=== PATIENT | female | born 2000 | race Caucasian/White ===

== ENCOUNTER 2020-03-17 07:25 | Inpatient (IN) | payer MEDICAID ==
[~2020-03-17] VITALS: Ht 165.1 cm; Wt 61.2 kg
[2020-03-17] MEDS ORDERED: CHOL40002 PO (08:30)
[2020-03-17] MEDS ORDERED: PNV1TABL76 PO (08:30)
[2020-03-17] MEDS ORDERED: LACTATED RINGERS 1,000 ML IV SCH ×2 (09:00→10:30)
[2020-03-17 09:24] LABS: CLARITY URINE TURBID (CLEAR); COLOR URINE DARK YELLOW (YELLOW); KETONES URINE 2+ (NEGATIVE); LEUKOCYTE ESTERASE URINE 2+ (NEGATIVE); NITRITE URINE NEGATIVE (NEGATIVE); OCCULT BLOOD URINE 3+ (NEGATIVE); PH URINE 5.5 (4.5-8.0); PROTEIN URINE 1+ (NEGATIVE)
[2020-03-17] MEDS ORDERED: TERBUTALINE SULFATE 1MG/ML VIAL SUBCUT SCH (10:00)
[2020-03-17] MEDS ORDERED: BETAMETHASONE ACET/BETAMET 30 MG/5 ML VIAL IM SCH (10:00)
[2020-03-17] MEDS ORDERED: DEXT 5%/LR + PITOCIN 20UNITS/L 1,000 ML IV SCH ×2 (10:02→11:36)
[2020-03-17] MEDS ORDERED: CARBOPROST TROMETHAMINE 250 MCG/ML AMPUL IM PRN (10:15)
[2020-03-17] MEDS ORDERED: MISOPROSTOL 200MCG TABLET VG SCH (10:15)
[2020-03-17] MEDS ORDERED: LIDOCAINE HCL 1% 20ML VIAL (Pyxis) INJ INFIL SCH (10:15)
[2020-03-17] MEDS ORDERED: NALOXONE HCL 0.4 MG/ML 1ML VIAL IM PRN (10:15)
[2020-03-17] MEDS ORDERED: METHYLERGONOVINE MALEATE 0.2 MG/ML IM PRN (10:15)
[2020-03-17] MEDS ORDERED: BUTORPHANOL TARTRATE 2 MG/ML VIAL IV PRN (10:15)
[2020-03-17 10:32] LABS: BASOPHILS % 0.4 % (0.0-2.0); HEMATOCRIT. 35.7 % (36.0-48.0); HEMOGLOBIN. 12.2 g/dL (12.0-16.0); LYMPHOCYTES % 10.9 % (20.0-50.0); MEAN CORPUSCULAR HEMOGLOBIN 27.6 pg (28.0-32.0); MEAN CORPUSCULAR VOLUME 80.5 fL (81.0-99.0); MEAN PLATELET VOLUME 10.2 fl (7.4-10.4); MONOCYTES % 4.7 % (2.0-8.0); PLATELET 272 x1000/uL (130-400); RED BLOOD CELL COUNT 4.43 mill/uL (4.2-5.4); RED CELL DISTRIBUTION WIDTH 14.6 % (11.6-14.6)
[2020-03-17 10:40] LABS: INR 0.9; PARTIAL THROMBOPLASTIN TIME 29.3 sec (23.4-31.0); PROTHROMBIN TIME 10.3 sec (9.6-11.0)
[2020-03-17 10:43] LABS: *AMPHETAMINES SCREEN URINE NEGATIVE (NEGATIVE); *BARBITURATES SCREEN URINE NEGATIVE (NEGATIVE); *COCAINE SCREEN URINE NEGATIVE (NEGATIVE)
[2020-03-17 10:44] LABS: *BENZODIAZEPINES SCREEN URINE NEGATIVE (NEGATIVE); METHADONE URINE SCREEN NEGATIVE (NEGATIVE); OPIATES URINE SCREEN NEGATIVE (NEGATIVE); PHENCYCLIDINE URINE SCREEN NEGATIVE (NEGATIVE)
[2020-03-17] MEDS ORDERED: ROPIVACAINE HCL/PF EPIDURAL 200 ML EPI NR (11:00)
[2020-03-17] MEDS ORDERED: AZITHROMYCIN 500 MG in DEXT 5% WATER 250 ML IV SCH (11:00)
[2020-03-17] MEDS ORDERED: ROPIVACAINE HCL/PF EPIDURAL 200 ML EPI ONE (11:10)
[2020-03-17 11:22] LABS: HEPATITIS B SURFACE ANTIGEN NEGATIVE
[2020-03-17 11:26] LABS: CANNABINOID URINE SCREEN PRESUMTIVE POSITIVE (NEGATIVE)
[2020-03-17] MEDS ORDERED: IBUPROFEN 400MG TABLET PO PRN (11:45)
[2020-03-17] MEDS ORDERED: RHO(D) IMMUNE GLOBULIN 300 MCG/SYR IM PRN (11:45)
[2020-03-17] MEDS ORDERED: AMPICILLIN 2,000 MG in SODIUM CHLORIDE 0.9% 100 ML IV SCH (12:00)
[2020-03-17 12:30] VITALS: BP 119/75
[2020-03-17 13:30] VITALS: BP 110/68
[2020-03-17] MEDS ORDERED: ONDANSETRON HCL 4MG TABLET PO PRN (14:15)
[2020-03-17] MEDS: IBUPROFEN 800MG TABLET PO PRN (14:33)
[2020-03-17 20:30] VITALS: BP 108/70
[2020-03-18 04:10] VITALS: BP 99/67
[2020-03-18 06:50] LABS: HEMATOCRIT. 31.7 % (36.0-48.0); HEMOGLOBIN. 10.7 g/dL (12.0-16.0); MEAN CORPUSCULAR HEMOGLOBIN 27.6 pg (28.0-32.0); MEAN CORPUSCULAR VOLUME 81.7 fL (81.0-99.0); MEAN PLATELET VOLUME 10.2 fl (7.4-10.4); PLATELET 209 x1000/uL (130-400); RED BLOOD CELL COUNT 3.88 mill/uL (4.2-5.4); RED CELL DISTRIBUTION WIDTH 14.5 % (11.6-14.6)
[2020-03-18 08:00] VITALS: BP 106/76
[2020-03-18] MEDS ORDERED: AMPICILLIN 1,000 MG in SODIUM CHLORIDE 0.9% 50 ML IV SCH (11:15)
[2020-03-18 11:59] LABS: PLATELET ESTIMATE NORMAL
[2020-03-18] MEDS: IBUPROFEN 800MG TABLET PO PRN ×2 (12:05→19:53)
[2020-03-18] MEDS ORDERED: GENTAMICIN 120MG PREMIX 100 ML IV SCH (13:00)
[2020-03-18 15:25] VITALS: BP 119/70
[2020-03-18 15:42] LABS: CHLORIDE 109 mEq/L (98-107)
[2020-03-18] MEDS: AMPICILLIN 1,000 MG in SODIUM CHLORIDE 0.9% 50 ML IV SCH ×2 (17:56→23:52)
[2020-03-18 19:40] VITALS: BP 121/77
[2020-03-18 20:56] LABS: *AMPHETAMINES SCREEN URINE NEGATIVE (NEGATIVE)
[2020-03-18 20:57] LABS: *BARBITURATES SCREEN URINE NEGATIVE (NEGATIVE); *BENZODIAZEPINES SCREEN URINE NEGATIVE (NEGATIVE); *COCAINE SCREEN URINE NEGATIVE (NEGATIVE); METHADONE URINE SCREEN NEGATIVE (NEGATIVE); OPIATES URINE SCREEN NEGATIVE (NEGATIVE)
[2020-03-18] MEDS: GENTAMICIN 80MG PREMIX 100 ML IV SCH (20:57)
[2020-03-18 20:58] LABS: PHENCYCLIDINE URINE SCREEN NEGATIVE (NEGATIVE)
[2020-03-18 21:26] LABS: CANNABINOID URINE SCREEN PRESUMTIVE POSITIVE (NEGATIVE)
[2020-03-19 04:30] VITALS: BP 110/62
[2020-03-19] MEDS: GENTAMICIN 80MG PREMIX 100 ML IV SCH (05:01)
[2020-03-19] MEDS: AMPICILLIN 1,000 MG in SODIUM CHLORIDE 0.9% 50 ML IV SCH ×2 (05:54→12:04)
[2020-03-19] MEDS: IBUPROFEN 800MG TABLET PO PRN (06:36)
[2020-03-19 07:46] LABS: BASOPHILS % 0.2 % (0.0-2.0); HEMATOCRIT. 31.2 % (36.0-48.0); HEMOGLOBIN. 10.6 g/dL (12.0-16.0); LYMPHOCYTES % 15.3 % (20.0-50.0); MEAN CORPUSCULAR HEMOGLOBIN 27.7 pg (28.0-32.0); MEAN CORPUSCULAR VOLUME 81.7 fL (81.0-99.0); MEAN PLATELET VOLUME 9.3 fl (7.4-10.4); MONOCYTES % 4.6 % (2.0-8.0); NEUTROPHILS % 79.9 % (40.0-76.0); PLATELET 193 x1000/uL (130-400); RED BLOOD CELL COUNT 3.82 mill/uL (4.2-5.4); RED CELL DISTRIBUTION WIDTH 14.7 % (11.6-14.6)
[2020-03-19 08:00] VITALS: BP 120/72
[2020-03-25 04:09] LABS: CANNABINOID CONFIRMATION URINE Positive (.)
[2020-03-25 08:08] LABS: CANNABINOID CONFIRMATION URINE Positive (.)
== END 2020-03-19 13:50 | disposition home or self-care (01) | DRG 560 ==
LOC: OBSVTOIN 07:25 → 8 EST LDRP 07:25 → 8EST 13:08
PROVIDERS: ADMIT Obstetrics & Gynecology; ATTEND Obstetrics & Gynecology
PROC: 10E0XZZ Delivery of Products of Conception, External Approach (ICD-10-PCS; principal; 2020-03-17)
DX: O42.913 Preterm premature rupture of membranes, unspecified as to length of time between rupture and onset of labor, third trimester (principal); O99.13 Other diseases of the blood and blood-forming organs and certain disorders involving the immune mechanism complicating the puerperium; D72.829 Elevated white blood cell count, unspecified; Z37.0 Single live birth; Z3A.30 30 weeks gestation of pregnancy
CPT/HCPCS: 36415; 76805; 76818; 76830; 80048; 80305; 80349; 81003; 85025; 86592; 86644; 86703; 86762; 86850; 86900; 87340; J0290; J0456; J0702; J1580; J2590; J2795; J3105; J7050; J7060; J7120; Q0162